=== PATIENT | female | born 1990 | race Caucasian/White ===

== ENCOUNTER → 2016-10-11 | Outpatient (CLI) | payer OTHER ==
--- NOTE | 2016-10-11 10:45 | MM ---
Reason for exam: screening (asymptomatic). Baseline mammogram. History: Patient is nulliparous. Family history of breast cancer in grandmother and breast cancer in aunt. Physical Findings: Nurse Summary: 2cm nodule in the right breast at 10 o'clock (nurse sylvia). MG 3D Diag Mammo W/Cad KAYLEY Bilateral CC and MLO view(s) were taken. The breast tissue is extremely dense which could obscure a lesion on mammography. There is no discrete abnormality. BB upper outer quadrant. These results were verbally communicated with the patient and result sheet given to the patient on 10/11/16. ASSESSMENT: Negative, BI-RAD 1 RECOMMENDATION: Routine screening mammogram of both breasts at age 39. Manage patient on a clinical basis.
--- NOTE | 2016-10-11 10:45 | USB ---
Reason for exam: clinical finding. History: Patient is nulliparous. Family history of breast cancer in grandmother and breast cancer in aunt. US Breast RT Right breast ultrasound includes all four quadrants, the retroareolar region and axilla. Finding demonstrates no cystic or solid lesion seen. These results were verbally communicated with the patient and result sheet given to the patient on 10/11/16. ASSESSMENT: Negative, BI-RAD 1 RECOMMENDATION: Routine screening mammogram of both breasts at age 39. Manage patient on a clinical basis.
== END ==
LOC: RADMAMWWP 08:48
PROVIDERS: ATTEND Obstetrics & Gynecology
DX: N63 Unspecified lump in breast (principal)
CPT/HCPCS: 76641; G0204; G0279

== ENCOUNTER 2018-01-01 14:42 | Outpatient (CLI) | payer OTHER ==
[2018-01-01 15:33] VITALS: BP 116/72; PULSE 82; RESP 16; TEMP 97.6
--- NOTE | 2018-01-19 13:10 | P.MSEPDOC ---
Presenting Problems - Arrival Data Date of Arrival on Unit: 01/01/18 Time of Arrival on Unit: 14:45 Mode of Transport: Ambulatory - Complaint OB-Reason for Admission/Chief Complaint: Decreased Movement Medical History - Information : 1 Para: 0 Term: 0 : 0 Abortions: Spontaneous or Elective: 0 Number of Living Children: 0 - Gestational Age Gestational Age by KELTON (wks/days): 27 Weeks and 0 Days Review of Systems - Review of Systems Constitutional: No problems Breast: No problems ENT: Nasal congestion Cardiovascular: No problems Respiratory: No problems Gastrointestinal: No problems Genitourinary: No problems Musculoskeletal: No problems Neurological: No problems Skin: No problems Vital Signs - Temperature Temperature: 97.6 F Temperature Source: Oral - Pulse Right Sitting Brachial Pulse Rate: 82 Pulse Assessment Method: Automatic Cuff - Respirations Respiratory Rate: 16 - Blood Pressure Right Arm Blood Pressure: 116/72 Blood Pressure Mean: 86 Blood Pressure Source: Automatic Cuff Medical Screen Scoring (Pre) - Cervical Exam Dilation: Exam Deferred Effacement: Exam Deferred Membranes: Intact - Uterine Contractions Frequency: N/A Duration: N/A Intensity: N/A - Maternal Vital Signs Maternal Temperature: N/A Maternal Blood Pressure: N/A Signs of Preeclampsia: N/A Maternal Respirations: N/A - Maternal Trauma Maternal Trauma: N/A - Assessment Baseline FHR: 150 Heart Rate - NICHD Category: Category I (Normal) = 0 Position: N/A Station: N/A - Total Score Total Score (Pre): 0 - Level of Risk Level of Risk: Low (0-5) Physician Notification (Pre) - Physician Notified Physician Notified Date: 01/01/18 Physician Notified Time: 15:20 Physician/Practitioner Notifed:: Valdemar Bradford Order Received: Yes Disposition - Disposition OB Disposition: Discharge to home, Written follow up instructions reviewed Discharge Date: 01/01/18 Discharge Time: 15:25 I agree with the RN Medical Screening Exam: Yes Risk & Benefit of care provided described in d/c instruction: Yes Diagnosis: DECREASED MOVEMENTS, SECOND TRIMESTER, FETUS 1
== END 2018-01-01 15:25 | disposition home or self-care (01) ==
LOC: FBPOP 14:42
PROVIDERS: ATTEND Obstetrics & Gynecology
DX: O36.8121 Decreased fetal movements, second trimester, fetus 1 (principal); Z3A.27 27 weeks gestation of pregnancy
CPT/HCPCS: 99213

== ENCOUNTER 2018-03-30 09:34 | Inpatient (IN) | payer BC, OTHER ==
[2018-03-30] MEDS ORDERED: CITRIC ACID-SODIUM CITRATE 15 ML CUP PO ONE (10:02)
[2018-03-30 10:15] VITALS: BMI 29.2
[2018-03-30] MEDS ORDERED: LACTATED RINGERS 1,000 ML IV SCH ×2 (10:15→12:00)
[2018-03-30 10:23] LABS: Basophils # (A) 0.1 k/uL (0-0.2); Basophils % (A) 0 %; Eosinophils # (A) 0.2 k/uL (0-0.7); Eosinophils % (A) 2 %; HCT 41.3 % (34.0-46.0); HGB 13.4 gm/dL (11.4-16.0); Lymphocytes # (A) 1.5 k/uL (1.0-4.8); Lymphocytes % (A) 12 %; MCH 31.1 pg (25.0-35.0); MCHC 32.6 g/dL (31.0-37.0); MCV 95.4 fL (80.0-100.0); Mean Platelet Volume 7.3; Monocytes # (A) 0.7 k/uL (0-1.0); Monocytes % (A) 5 %; Neutrophils # (A) 10.1 k/uL (1.3-7.7); Neutrophils % (A) 79 %; Platelet Count 171 k/uL (150-450); RBC 4.33 m/uL (3.80-5.40); RDW 13.7 % (11.5-15.5); WBC 12.8 k/uL (3.8-10.6)
[2018-03-30] MEDS ORDERED: CLINDAMYCIN 900 MG in DEXTROSE 5% IN WATER 50 ML IVPB STA ×2 (10:23)
[2018-03-30] MEDS ORDERED: MORPHINE SULFATE (PF) 0.3 MG/0.3 ML SYR ONE (10:56)
[2018-03-30] MEDS ORDERED: NALBUPHINE 10 MG/ML VIAL (10ML MDV) ONE (10:56)
[2018-03-30] MEDS ORDERED: ONDANSETRON 4 MG/2 ML VIAL ONE (10:56)
[2018-03-30] MEDS ORDERED: KETOROLAC 30 MG/ML 1 ML VIAL ONE (10:56)
[2018-03-30] MEDS ORDERED: OXYTOCIN 10 UNIT/ML 1 ML VIAL ONE (10:56)
[2018-03-30] MEDS ORDERED: fentaNYL (PF) 50 MCG/ML 2 ML AMP ONE (10:56)
[2018-03-30] MEDS ORDERED: PHENYLEPHRINE-0.9% NACL SYG 1 MG/10 ML SYRINGE ONE (10:56)
[2018-03-30] MEDS ORDERED: LACTATED RINGERS 1,000 ML BAG IV ONE (10:56)
--- NOTE | 2018-03-30 11:00 | P.HPOB ---
History of Present Illness H&P Date: 03/30/18 Chief Complaint: 39+ weeks, breech presentation The patient is a 27-year-old 1 para 0 admitted at 39-3/7 weeks as established by last menstrual period and confirmed by seven-week ultrasound. She is admitted for primary low-transverse section having been found with the fetus in breech presentation for the last several weeks. We discussed alternatives including version which she ultimately decline in favor of primary section. Her has been otherwise entirely uncomplicated and group B strep status is negative. Obstetrical history: 1 para 0 with current statistics listed in history present illness. EDC of 04/02/2018 was established by last menstrual period and confirmed by seven-week ultrasound. Laboratory workup done traits of blood type of A+ with a negative antibody screen. Rubella status is immune. All other laboratory workup was within normal limits. One hour Glucola was normal and group B strep status is negative. Gynecologic history: Unremarkable with no history of any infections to include STDs. Review of Systems Review of systems is confined to history of present illness. Past Medical History Past Medical History: No Reported History History of Any Multi-Drug Resistant Organisms: None Reported Past Surgical History: No Surgical Hx Reported Past Anesthesia/Blood Transfusion Reactions: No Reported Reaction Past Psychological History: No Psychological Hx Reported Smoking Status: Former smoker Past Alcohol Use History: None Reported Additional Past Alcohol Use History / Comment(s): QUIT SMOKING JUNE 2017 Past Drug Use History: None Reported - Past Family History Mother Family Medical History: No Reported History Medications and Allergies Home Medications Medication Instructions Recorded Confirmed Type Pnv,Calcium 72/Iron/Folic Acid 1 tab PO DAILY 01/01/18 03/30/18 History [ Plus Tablet] Allergies Allergy/AdvReac Type Severity Reaction Status Date / Time Penicillins Allergy Rash/Hives Verified 03/30/18 09:46 Sulfa (Sulfonamide Allergy Rash/Hives Verified 03/30/18 09:46 Antibiotics) adhesive tape AdvReac Rash/Hives Verified 03/30/18 09:46 Exam Vital Signs Temp Pulse Resp BP Pulse Ox 03/30/18 09:43 97.2 F L 101 H 18 135/82 96 Intake and Output 03/29/18 03/30/18 03/30/18 22:59 06:59 14:59 Other: Weight 82.1 kg In general, this is a well-developed, well-nourished white female in no acute distress. Her heart has a regular rhythm and rate without murmur. Her lungs are clear to auscultation bilaterally in all lombardo. Her abdomen is gravid, nondistended, has normal active bowel sounds, is soft, nontender, and without any palpable masses aside from the uterine fundus. Bedside ultrasound confirms breech presentation with the head in the left upper quadrant. Her extremities are without any cyanosis, clubbing, or edema and are nontender to palpation bilaterally. Digital cervical examination is deferred. Results Result Diagrams: 03/30/18 10:00 Abnormal Lab Results - Last 24 Hours (Table) 03/30/18 Range/Units 10:00 WBC 12.8 H (3.8-10.6) k/uL Neutrophils # 10.1 H (1.3-7.7) k/uL Assessment and Plan (1) Term Current Visit: Yes Status: Acute Code(s): Z34.80 - ENCOUNTER FOR SUPRVSN OF NORMAL , UNSP TRIMESTER SNOMED Code(s): 10893216 (2) Breech presentation Current Visit: Yes Status: Acute Code(s): O32.1XX0 - MATERNAL CARE FOR BREECH PRESENTATION, UNSP SNOMED Code(s): 6356008 Plan: The patient is admitted for primary low-transverse section. She was counseled regarding alternatives and opted to proceed in this direction. The risks and, occasions the procedure have been thoroughly discussed. She has understood this and agreed to proceed.
[2018-03-30] MEDS ORDERED: HYDROcodone/APAP 7.5-325MG 1 EACH TAB PO PRN (11:47)
[2018-03-30] MEDS ORDERED: ACETAMINOPHEN TAB 325 MG TAB PO PRN (11:47)
[2018-03-30] MEDS ORDERED: diphenhydrAMINE 50 MG/ML 1 ML VIAL IVP PRN ×2 (11:47)
[2018-03-30] MEDS ORDERED: KETOROLAC 30 MG/ML 1 ML VIAL IVP PRN (11:47)
[2018-03-30] MEDS ORDERED: SIMETHICONE 80 MG CHEWABLE PO PRN (11:47)
[2018-03-30] MEDS ORDERED: ZOLPIDEM 5 MG TAB PO PRN (11:47)
[2018-03-30] MEDS ORDERED: diphenhydrAMINE 25 MG CAP PO PRN (11:47)
[2018-03-30] MEDS ORDERED: METOCLOPRAMIDE 5 MG/ML 2 ML VIAL IVP PRN (11:47)
[2018-03-30] MEDS ORDERED: LANOLIN CREAM 5 GM TUBE TOPICAL PRN (11:47)
[2018-03-30] MEDS ORDERED: NALOXONE 0.4 MG/ML 1 ML VIAL IV PRN (11:47)
[2018-03-30] MEDS ORDERED: diphenhydrAMINE 50 MG CAP PO PRN (11:47)
[2018-03-30] MEDS ORDERED: HYDROcodone/APAP 5-325MG 1 EACH TAB PO PRN (11:47)
[2018-03-30] MEDS ORDERED: ONDANSETRON 4 MG/2 ML VIAL IVP PRN (11:47)
[2018-03-30] MEDS ORDERED: DIPH,PERTUS(ACELL)TETVAC-LF 0.5 ML VIAL IM ONE (11:49)
--- NOTE | 2018-03-30 11:54 | P.OP ---
Date of Procedure: 03/30/18 Preoperative Diagnosis: #1. 39-3/7 weeks intrauterine , breech presentation Postoperative Diagnosis: Same Procedure(s) Performed: Primary low-transverse section Anesthesia: spinal Surgeon: [facility] Assistant #1: Reyna Cristobal Estimated Blood Loss (ml): 500 IV fluids (ml): 1,500 Urine output (ml): 200 Pathology: none sent Condition: stable Disposition: floor Operative Findings: Preoperatively, breech presentation was confirmed with bedside ultrasound performed by co. Intraoperatively, the fetus was noted to be in abran breech presentation was delivered with standard breech maneuvers. She was delivered of a viable 6 lbs. 5 oz. baby girl with Apgars of 9 at 1 minute and 9 at 5 minutes in abran breech presentation as noted above with standard maneuvers. There was a loose nuchal cord 1 reduced following delivery of the . The placenta was delivered manually, intact, and grossly normal with a grossly normal three-vessel cord. The uterus, tubes, and ovaries were entirely normal to inspection. Description of Procedure: The patient was prepped and draped in usual fashion after spinal anesthesia was administered by the anesthesiologist. A Pfannenstiel incision was made in the transverse plane and extended into the abdominal cavity without difficulty. The bladder peritoneum was significant a distal to the site of the incision and was left in place. A 2 cm incision was made in the transverse plane of the lower uterine segment to enter the uterus at which time clear fluid was noted. The incision was extended in both directions using the bandage scissors. The breech was encountered within the incision and abran breech presentation. It was delivered up and through the incision where standard Pinard maneuvers were utilized to deliver the legs as well as the arms with rotation. The head delivered easily. There was noted to be a nuchal cord which was reduced following delivery. The cord was doubly clamped, cut, and the infant passed for resuscitative measures with weight and Apgars as noted above. A segment of cord was doubly clamped, cut, and set aside should cord gases become necessary. The placenta was delivered manually and intact as noted above. The uterus was exteriorized and the interior cavity of uterus swept of any remaining placental or membranous fragments. The margins of the incisions were grasped with Dumont clamps and the incision closed in 2 layers. The first layer was a running locking stitch of 0 chromic catgut followed by a running imbricating stitch of 0 chromic catgut, each from margin to margin. One small point of bleeding was noted at the left angle of the incision and was made hemostatic with a [id number] stitch of 0 chromic catgut. Hemostasis then appeared to be excellent. The gutters were swept of any remaining blood, fluid , or clot. The parietal peritoneum was loosely reapproximated and layer of muscles examined and found to be hemostatic. The fascia was closed with a single running stitch of 0 Vicryl of proceeding from margin to margin. Subcutaneous tissues were irrigated, made hemostatic with the Bovie, and the knot closed as there was no depth. The skin was reapproximated with a running subcuticular stitch of 4-0 Vicryl proceeding from margin to margin followed by placement of half-inch Steri-Strips using Mastisol. Estimated blood loss for the entire case was approximate 500 mL. There were no complications. All sponge, instrument, and needle counts were correct. The patient tolerated the procedure well and proceeded to the recovery room in stable condition. Both mother and are resting comfortably in recovery.
[2018-03-30] MEDS ORDERED: OXYTOCIN 20 UNITS/1000 ML NS 1,000 ML IV SCH (12:00)
[2018-03-30] MEDS: SENNOSIDES-DOCUSATE SODIUM 1 EACH TAB PO SCH (21:10)
[2018-03-31 07:24] LABS: Basophils % (A) 0 %; Eosinophils # (A) 0.1 k/uL (0-0.7); Eosinophils % (A) 1 %; HCT 34.9 % (34.0-46.0); HGB 11.3 gm/dL (11.4-16.0); Lymphocytes # (A) 1.3 k/uL (1.0-4.8); Lymphocytes % (A) 9 %; MCH 31.3 pg (25.0-35.0); MCHC 32.4 g/dL (31.0-37.0); MCV 96.7 fL (80.0-100.0); Mean Platelet Volume 7.9; Monocytes # (A) 0.9 k/uL (0-1.0); Monocytes % (A) 6 %; Neutrophils # (A) 12.3 k/uL (1.3-7.7); Neutrophils % (A) 83 %; Platelet Count 175 k/uL (150-450); RBC 3.61 m/uL (3.80-5.40); RDW 13.9 % (11.5-15.5); WBC 14.8 k/uL (3.8-10.6)
--- NOTE | 2018-03-31 07:40 | P.PN ---
Progress Note - Text Progress Note Date: 03/31/18 Patient evaluated POST op day 1 section denies any headaches, VAS 5/10 progressing as expected Site is clean dry and intact will sign off
[2018-03-31] MEDS: SENNOSIDES-DOCUSATE SODIUM 1 EACH TAB PO SCH ×2 (08:14→21:57)
--- NOTE | 2018-03-31 09:45 | P.PNOBGPC ---
Subjective - Subjective Patient reports: Reports appetite normal, Reports pain well controlled, Reports ambulating normally, Reports other (Unable to urinate since catheter taken out last evening.) : doing well Objective - Vital Signs Latest vital signs: Vital Signs Temp Pulse Resp BP Pulse Ox 03/31/18 08:00 98.5 F 75 16 109/67 03/31/18 04:00 98.2 F 76 18 116/61 98 03/31/18 00:00 98.3 F 80 16 106/71 98 03/30/18 20:00 98.1 F 78 16 111/71 03/30/18 16:00 97.5 F L 83 16 112/51 03/30/18 13:51 83 16 113/55 03/30/18 13:21 97.7 F 79 16 102/57 98 03/30/18 12:51 71 16 105/54 98 03/30/18 12:36 97.5 F L 86 18 113/56 03/30/18 12:21 89 18 105/56 03/30/18 12:06 80 16 100/57 03/30/18 12:00 95.1 F L 73 18 96/53 03/30/18 11:51 95.1 F L 75 18 96/53 Intake and Output 03/30/18 03/31/18 03/31/18 22:59 06:59 14:59 Intake Total 100 Output Total 140 840 4889 Balance -400 -750 -1600 Intake: Oral 100 Output: Urine 266 346 6963 Uretheral (Currie) 450 800 Emesis 50 Other: # Voids 1 - Exam Extremities: Present: normal Abdomen: Present: normal appearance, soft. Absent: distention, tenderness Incision: Present: normal, dry, intact Uterus: Present: normal, firm (The uterine fundus is tonic and nontender well below the umbilicus.) - Labs Labs: Abnormal Lab Results - Last 24 Hours (Table) 03/30/18 03/31/18 Range/Units 10:00 07:04 WBC 12.8 H 14.8 H (3.8-10.6) k/uL RBC 3.61 L (3.80-5.40) m/uL Hgb 11.3 L (11.4-16.0) gm/dL Neutrophils # 10.1 H 12.3 H (1.3-7.7) k/uL Assessment and Plan (1) Term Current Visit: Yes Status: Acute Code(s): Z34.80 - ENCOUNTER FOR SUPRVSN OF NORMAL , UNSP TRIMESTER SNOMED Code(s): 34907763 (2) Breech presentation Current Visit: Yes Status: Acute Code(s): O32.1XX0 - MATERNAL CARE FOR BREECH PRESENTATION, UNSP SNOMED Code(s): 4700282 (3) Status post section Current Visit: Yes Status: Acute Code(s): Z98.891 - HISTORY OF UTERINE SCAR FROM PREVIOUS SURGERY SNOMED Code(s): 816275081 Plan: Continue routine postoperative care. I would anticipate discharge home tomorrow pending no complications. I fully anticipate normal voiding and the next several hours. I have encouraged her to and placed in the halls routinely.
[2018-03-31] MEDS: IBUPROFEN 600 MG TAB PO PRN (17:33)
[2018-04-01] MEDS: IBUPROFEN 600 MG TAB PO PRN (06:11)
--- NOTE | 2018-04-01 08:05 | P.DS ---
Providers Date of admission: 03/30/18 09:34 Expected date of discharge: 04/01/18 Attending physician: Dom Aldrich Primary care physician: Stated None Hospital Course: This is a 27-year-old white female 1 para 0 EDC 04/02/2018 at 39-4/7 weeks' gestation. Patient presented for primary low transverse section for known breech presentation. was essentially unremarkable, blood type A+, group B strep cultures negative, rubella status immune. Please see dictated history and physical for details. Patient underwent a primary low transverse section giving to a liveborn female infant. She had scores of 9 and 9 at one and 5 minutes respectively. She weighed 6 lbs. 5 oz. or 2870 g. She did well intraoperatively with an estimated blood loss of 500 mL's. Please see dictated operative note for details. This morning the patient is doing well. She is voiding, ambulating, passing flatus without difficulty. She has had a bowel movement. She is tolerating regular food. is doing well. Incision is clean and dry, intact with Steri-Strips applied. Breasts are not engorged. Breast-feeding is going well. Extremities are negative for edema and chest is clear in all lombardo. Patient is being discharged home today in very good condition. She will follow- up in the office for an incision check in 2 weeks. She will use over-the- counter Advil or Aleve, or ibuprofen as needed for pain. I've asked her to call with any fevers shakes or chills, foul smelling or copious lochia, with the passage of large blood clots, with any pain not alleviated by over-the- counter products or indeed with any concerns. She is reminded no heavy lifting , nothing in the vagina, no intercourse tampons or douching. infant will follow-up with it infrastructure consultant as recommended. Patient Condition at Discharge: Good Plan - Discharge Summary Discharge Rx Participant: No New Discharge Prescriptions: No Action Pnv,Calcium 72/Iron/Folic Acid [ Plus Tablet] 1 tab PO DAILY Discharge Medication List Pnv,Calcium 72/Iron/Folic Acid [ Plus Tablet] 1 tab PO DAILY 01/01/18 [ History] Follow up Appointment(s)/Referral(s): Dom Aldrich MD [STAFF PHYSICIAN] - 2 Weeks Discharge Disposition: HOME SELF-CARE
[2018-04-01 09:05] VITALS: BP 124/74; PULSE 89; RESP 18; TEMP 98
[2018-04-01] MEDS: SENNOSIDES-DOCUSATE SODIUM 1 EACH TAB PO SCH (09:06)
== END 2018-04-01 14:00 | disposition home or self-care (01) | DRG 788 ==
LOC: 4FBP 09:34
PROVIDERS: ADMIT Obstetrics & Gynecology; ATTEND Obstetrics & Gynecology
PROC: 10D00Z1 Extraction of Products of Conception, Low, Open Approach (ICD-10-PCS; principal; 2018-03-30 10:56)
DX: O32.1XX0 Maternal care for breech presentation, not applicable or unspecified (principal); O69.81X0 Labor and delivery complicated by cord around neck, without compression, not applicable or unspecified; Z37.0 Single live birth; Z3A.39 39 weeks gestation of pregnancy; Z87.891 Personal history of nicotine dependence; Z88.0 Allergy status to penicillin; Z88.2 Allergy status to sulfonamides
CPT/HCPCS: 85025; 86850; 86900; 86901; 90715

== ENCOUNTER → 2018-12-08 | Outpatient (CLI) | payer BC ==
[2018-12-08 17:06] LABS: Appearance,BF Cloudy; Color,BF Brown
[2018-12-08 17:37] LABS: Nucleated Cells, Body Fluid 9700 /uL; RBC, Body Fluid 12100 /uL
[2018-12-08 17:45] LABS: Mononuclear WBC,Body Fluid 20 %; Polynuclear WBC,Body Fluid 80 %; Total Cells Counted,Body Fluid 100
== END | disposition home or self-care (01) ==
LOC: LABWHC1 12:48
PROVIDERS: ATTEND Orthopaedic Surgery
DX: M25.562 Pain in left knee (principal); M25.462 Effusion, left knee
CPT/HCPCS: 87070; 87075; 87205; 89050; 89060

== ENCOUNTER 2020-08-25 08:14 | Inpatient (IN) | payer BC ==
[2020-08-23 15:21] VITALS: BMI 30.7
[2020-08-25] MEDS ORDERED: CITRIC ACID-SODIUM CITRATE 15 ML CUP PO ONE (08:38)
[2020-08-25] MEDS ORDERED: LACTATED RINGERS 1,000 ML IV ONE (08:38)
[2020-08-25] MEDS ORDERED: CLINDAMYCIN 900 MG in DEXTROSE 5% IN WATER 50 ML IVPB ONE ×2 (08:38)
[2020-08-25] MEDS ORDERED: SODIUM CHLORIDE 0.9% IVPB ONE (08:38)
[2020-08-25] MEDS ORDERED: GENTAMICIN IVPB ONE (08:38)
[2020-08-25] MEDS ORDERED: LACTATED RINGERS 1,000 ML IV SCH (08:45)
[2020-08-25 09:13] LABS: Basophils % (A) 0 %; Eosinophils # (A) 0.2 k/uL (0-0.7); Eosinophils % (A) 2 %; HCT 35.7 % (34.0-46.0); Lymphocytes # (A) 1.3 k/uL (1.0-4.8); Lymphocytes % (A) 12 %; MCH 30.1 pg (25.0-35.0); MCHC 33.5 g/dL (31.0-37.0); MCV 89.8 fL (80.0-100.0); Mean Platelet Volume 8.5; Monocytes # (A) 0.6 k/uL (0-1.0); Monocytes % (A) 6 %; Neutrophils % (A) 79 %; Platelet Count 149 k/uL (150-450); RBC 3.97 m/uL (3.80-5.40); RDW 13.4 % (11.5-15.5); WBC 10.1 k/uL (3.8-10.6)
[2020-08-25] MEDS ORDERED: OXYTOCIN 10 UNIT/ML 1 ML VIAL ONE (10:07)
[2020-08-25] MEDS ORDERED: NALBUPHINE 10 MG/ML (1 ML AMP) ONE (10:07)
[2020-08-25] MEDS ORDERED: MORPHINE SULFATE (PF) 0.3 MG/0.3 ML SYR ONE (10:07)
[2020-08-25] MEDS ORDERED: MIDAZOLAM 2 MG/2 ML VIAL ONE (10:07)
[2020-08-25] MEDS ORDERED: HYDROmorphone (PF) 1 MG/ML ONE (10:07)
[2020-08-25] MEDS ORDERED: ONDANSETRON 4 MG/2 ML VIAL ONE (10:07)
[2020-08-25] MEDS ORDERED: KETOROLAC 15 MG/ML 1 ML VIAL ONE (10:07)
--- NOTE | 2020-08-25 10:09 | P.HPOB ---
History of Present Illness H&P Date: 08/25/20 Chief Complaint: 39-0/7 weeks, previous section, requesting repeat with tubal ligat The patient is a 30-year-old 2 para 1001 admitted at 39-0/7 weeks as established by last menstrual period and confirmed by seven-week ultrasound. She is admitted for repeat low transverse section with intraoperative bilateral tubal occlusion using Filshie clips. She understands the applications of this and has signed consent to the procedure in the office. Her has been uncomplicated and group B strep status is negative. She is known to have a circumvallate placenta and had weekly testing starting at 32 weeks which was reassuring throughout the . Obstetrical history: 2 para 1001 with 1 previous section for b carlee. Current statistics are listed in history present illness. EDC of 08/31/2020 was established by last menstrual period and confirmed by seven- week ultrasound. Laboratory workup demonstrates a blood type of A+ with a negative antibody screen. Rubella status is immune. Remainder of the laboratory workup was within normal limits. One hour Glucola was normal and group B strep status is negative. Gynecologic history: Unremarkable with no history of any infections to include STDs. Review of Systems Review of systems is confined to history of present illness. Past Medical History Past Medical History: No Reported History History of Any Multi-Drug Resistant Organisms: None Reported Past Surgical History: Section Past Anesthesia/Blood Transfusion Reactions: No Reported Reaction Past Psychological History: No Psychological Hx Reported Smoking Status: Former smoker Past Alcohol Use History: None Reported Additional Past Alcohol Use History / Comment(s): QUIT SMOKING JUNE 2017 Past Drug Use History: None Reported - Past Family History Mother Family Medical History: No Reported History Medications and Allergies Home Medications Medication Instructions Recorded Confirmed Type Pnv,Calcium 72/Iron/Folic Acid 1 tab PO DAILY 01/01/18 08/23/20 History [ Plus Tablet] Allergies Allergy/AdvReac Type Severity Reaction Status Date / Time Penicillins Allergy Rash/Hives Verified 08/25/20 08:38 Sulfa (Sulfonamide Allergy Rash/Hives Verified 08/25/20 08:38 Antibiotics) adhesive tape AdvReac Rash/Hives Verified 08/25/20 08:38 Exam Vital Signs Temp Pulse Resp BP Pulse Ox 08/25/20 08:50 97.8 F 90 16 105/68 99 Intake and Output 08/24/20 08/25/20 08/25/20 22:59 06:59 14:59 Other: Weight 86.183 kg In general, this is a well-developed, well-nourished white female in no acute distress. Her heart has a regular rhythm and rate without murmur. Her lungs are clear to auscultation bilaterally in all lombardo. Her abdomen is gravid, no ndistended, has normal active bowel sounds, is soft, nontender, and without any palpable masses aside from the uterine fundus. Her extremities are without any cyanosis, clubbing, or significant edema and are nontender to palpation bilaterally. Digital cervical examination is deferred. Results Result Diagrams: 08/25/20 08:48 Abnormal Lab Results - Last 24 Hours (Table) 08/25/20 Range/Units 08:48 Plt Count 149 L (150-450) k/uL Neutrophils # 8.0 H (1.3-7.7) k/uL Assessment and Plan (1) Previous section Current Visit: Yes Status: Acute Code(s): Z98.891 - HISTORY OF UTERINE SCAR FROM PREVIOUS SURGERY SNOMED Code(s): 506447925 (2) Family planning Current Visit: Yes Status: Acute Code(s): Z30.09 - ENCOUNTER FOR OTH GENERAL CNSL AND ADVICE ON CONTRACEPTION SNOMED Code(s): 320885945 (3) Term Current Visit: Yes Status: Acute Code(s): Z34.80 - ENCOUNTER FOR SUPRVSN OF NORMAL , UNSP TRIMESTER SNOMED Code(s): 20265095 Plan: The patient is admitted for repeat low transverse section with bilateral tubal occlusion intraoperatively. The risks and complications the procedures have been thoroughly discussed including the permanent nature of tubal ligation as well as the slightly increased risk for ectopic . She has understood all this and agreed to proceed.
[2020-08-25] MEDS ORDERED: METOCLOPRAMIDE 5 MG/ML 2 ML VIAL IVP PRN (11:09)
[2020-08-25] MEDS ORDERED: NALOXONE 0.4 MG/ML 1 ML VIAL IV PRN ×2 (11:09→12:20)
[2020-08-25] MEDS ORDERED: diphenhydrAMINE 25 MG CAP PO PRN (11:09)
[2020-08-25] MEDS ORDERED: ONDANSETRON 4 MG/2 ML VIAL IVP PRN (11:09)
[2020-08-25] MEDS ORDERED: ZOLPIDEM 5 MG TAB PO PRN (11:09)
[2020-08-25] MEDS ORDERED: diphenhydrAMINE 50 MG CAP PO PRN (11:09)
[2020-08-25] MEDS ORDERED: SIMETHICONE 80 MG CHEWABLE PO PRN (11:09)
[2020-08-25] MEDS ORDERED: diphenhydrAMINE 50 MG/ML 1 ML VIAL IVP PRN ×2 (11:09)
[2020-08-25] MEDS ORDERED: LANOLIN CREAM 5 GM TUBE TOPICAL PRN (11:09)
[2020-08-25] MEDS ORDERED: HYDROmorphone 2 MG TAB PO PRN ×2 (11:09)
--- NOTE | 2020-08-25 11:09 | P.OP ---
Date of Procedure: 08/25/20 Preoperative Diagnosis: #1. Claus 9-0/7 weeks #2. Previous section 1, requesting repeat #3. Undesired fertility Postoperative Diagnosis: Same Procedure(s) Performed: #1. Repeat low transverse section #2. Intraoperative bilateral tubal occlusion with Filshie clips Anesthesia: spinal Surgeon: Dom Aldrich Yarn Examiner #1: Reyna Cristobal Estimated Blood Loss (ml): 500 IV fluids (ml): 600 Urine output (ml): 200 Pathology: none sent Condition: stable Disposition: floor Operative Findings: Intraoperatively there was only mild scarring at the level of the fascia and rectus muscles. The bladder was noted to be relatively high. The patient was delivered of a viable 8 lbs. 5 oz. baby boy with Apgars of 9 at 1 minute and 9 at 5 minutes delivered in the left occiput transverse position. There was a loose nuchal cord 1 which was reduced prior to delivery of the infant's torso. The placenta was delivered manually, intact, and grossly normal with a grossly normal three-vessel cord. The uterus, tubes, and ovaries were entirely normal to inspection. A Filshie clip was placed firmly across the isthmic portion of both fallopian tubes for tubal occlusion. Consent was reobtained on several occasions both preoperatively and intraoperatively prior to proceeding with placement of the clips. Description of Procedure: The patient was prepped and draped in usual fashion after spinal anesthesia was administered by the anesthesiologist. A Pfannenstiel incision was made and extended into the abdominal cavity with no difficulty. The bladder peritoneum was noted to be elevated somewhat was elevated, incised, and reflected distally. A 2 cm incision was made in the transverse plane of the lower uterine segment to enter the uterus at which time clear fluid was noted. The incision was extended in both directions using the bandage scissors. head was delivered up and through the incision where the nose and mouth were thoroughly suctioned. A nuchal cord 1 was noted and was reduced. The remainder of the infant was delivered onto the field where the cord was doubly clamped, cut, and the infant passed for resuscitative measures with weight and Apgars as noted above. A segment of cord was doubly clamped, cut, and set aside should cord gases become necessary. The placenta was delivered manually and intact as noted above. The uterus was exteriorized and the interior cavity of uterus swept of any remaining placental or membranous fragments. The margins of the uterine incision were grasped with Dumont clamps and the incision closed in 2 layers. The first layer was a running locking stitch of 0 chromic catgut from margin to margin followed by a running imbricating stitch of 0 chromic catgut from margin to margin. There were some fairly large vessels at the left angle of the incision which were controlled with the primary 2 layers of closure. The incision appeared to be quite hemostatic. The posterior cul-de-sac was ramires ctioned with a guard and the uterine and ovarian findings were normal as noted above. After again requesting and receiving verbal consent for tubal occlusion, a Filshie clip was placed firmly across the isthmic portion of each fallopian tube oh. The uterus was then replaced within the abdominal cavity and the gutters swept of any remaining blood, fluid, or clot. Reexamination of the surgical field demonstrated excellent hemostasis. The parietal peritoneum was loosely reapproximated and layer of muscles examined and found to be hemostatic. The fascia was closed with a single running stitch of 0 Vicryl proceeding from lateral margin to lateral margin. The subcutaneous tissues were irrigated, made hemostatic with the Bovie, and reapproximated with a running stitch of 30 plain catgut. The skin was approximated with a running subcuticular stitch of 4-0 Vicryl followed by half-inch Steri-Strips placed with Mastisol. Estimated blood loss for the case was approximate 500 mL. There were no compilations. All sponge, instrument, needle counts were correct. The patient tolerated the procedure well and proceeded to the recovery room in stable condition. Both mother and infant are resting comfortably in recovery.
[2020-08-25] MEDS ORDERED: OXYTOCIN 30 UNITS/500 ML NS 30 UNIT in SALINE 1 500ML.BAG IV SCH (11:15)
[2020-08-25] MEDS: LACTATED RINGERS 1,000 ML IV SCH ×2 (11:30→21:32)
[2020-08-25] MEDS ORDERED: MORPHINE SULFATE 2 MG/ML SYRINGE IVP PRN (12:20)
[2020-08-25] MEDS: ACETAMINOPHEN TAB 500 MG TAB PO SCH ×2 (15:11→20:11)
[2020-08-25] MEDS: KETOROLAC 15 MG/ML 1 ML VIAL IVP PRN (17:03)
[2020-08-25] MEDS: IBUPROFEN 600 MG TAB PO SCH (19:28)
[2020-08-25] MEDS: SENNOSIDES-DOCUSATE SODIUM 1 EACH TAB PO SCH (21:32)
[2020-08-26] MEDS: KETOROLAC 15 MG/ML 1 ML VIAL IVP PRN (00:17)
[2020-08-26] MEDS: IBUPROFEN 600 MG TAB PO SCH ×4 (00:27→19:33)
[2020-08-26] MEDS: ACETAMINOPHEN TAB 500 MG TAB PO SCH ×4 (03:43→22:55)
[2020-08-26] MEDS: LACTATED RINGERS 1,000 ML IV SCH ×2 (04:13→20:33)
[2020-08-26 06:30] LABS: Basophils % (A) 0 %; Eosinophils # (A) 0.1 k/uL (0-0.7); Eosinophils % (A) 1 %; HCT 28.7 % (34.0-46.0); Lymphocytes # (A) 0.8 k/uL (1.0-4.8); Lymphocytes % (A) 8 %; MCHC 34.4 g/dL (31.0-37.0); MCV 90.3 fL (80.0-100.0); Mean Platelet Volume 9.1; Monocytes # (A) 0.7 k/uL (0-1.0); Monocytes % (A) 7 %; Neutrophils # (A) 8.6 k/uL (1.3-7.7); Neutrophils % (A) 84 %; Platelet Count 135 k/uL (150-450); RBC 3.17 m/uL (3.80-5.40); RDW 13.4 % (11.5-15.5); WBC 10.3 k/uL (3.8-10.6)
[2020-08-26 06:32] LABS: HGB 9.9 gm/dL (11.4-16.0)
[2020-08-26] MEDS: SENNOSIDES-DOCUSATE SODIUM 1 EACH TAB PO SCH ×2 (08:24→20:33)
--- NOTE | 2020-08-26 12:20 | P.PNOBGPC ---
Subjective - Subjective Patient reports: Reports appetite normal, Reports voiding normally, Reports pain well controlled, Reports ambulating normally : doing well Objective - Vital Signs Latest vital signs: Vital Signs Temp Pulse Resp BP Pulse Ox 08/26/20 08:20 97.9 F 87 14 110/65 08/26/20 04:00 98.1 F 68 16 100/63 99 08/25/20 23:54 98.3 F 66 16 106/51 96 08/25/20 20:15 98.4 F 70 16 101/55 98 08/25/20 17:00 16 08/25/20 16:00 97.4 F L 76 16 104/58 98 08/25/20 15:20 16 08/25/20 13:20 16 99 08/25/20 13:07 70 16 100/53 99 08/25/20 12:37 72 16 99/51 08/25/20 12:20 18 99 Intake and Output 08/25/20 08/26/20 08/26/20 22:59 06:59 14:59 Output Total 900 400 600 Balance -900 -400 -600 Output: Urine 900 400 600 Uretheral (Currie) 500 Other: # Voids 1 - Exam Extremities: Present: normal Abdomen: Present: normal appearance, soft. Absent: distention, tenderness Incision: Present: normal, dry, intact Uterus: Present: normal, firm (The uterine fundus is tonic and minimally tender at the umbilicus.) - Labs Labs: Abnormal Lab Results - Last 24 Hours (Table) 08/26/20 Range/Units 06:12 RBC 3.17 L (3.80-5.40) m/uL Hgb 9.9 L D (11.4-16.0) gm/dL Hct 28.7 L (34.0-46.0) % Plt Count 135 L (150-450) k/uL Neutrophils # 8.6 H (1.3-7.7) k/uL Lymphocytes # 0.8 L (1.0-4.8) k/uL Assessment and Plan (1) Previous section Current Visit: Yes Status: Acute Code(s): Z98.891 - HISTORY OF UTERINE SCAR FROM PREVIOUS SURGERY SNOMED Code(s): 406845675 (2) Family planning Current Visit: Yes Status: Acute Code(s): Z30.09 - ENCOUNTER FOR OTH GENERAL CNSL AND ADVICE ON CONTRACEPTION SNOMED Code(s): 147288799 (3) Term Current Visit: Yes Status: Acute Code(s): Z34.80 - ENCOUNTER FOR SUPRVSN OF NORMAL , UNSP TRIMESTER SNOMED Code(s): 67390560 (4) Status post section Current Visit: Yes Status: Acute Code(s): Z98.891 - HISTORY OF UTERINE SCAR FROM PREVIOUS SURGERY SNOMED Code(s): 097912013 Plan: Continue routine and postoperative care. I would anticipate discharge home tomorrow pending no complications. I have strongly encouraged the patient to ambulate in the hallways routinely.
--- NOTE | 2020-08-26 17:15 | P.PN ---
Progress Note - Text Progress Note Date: 08/26/20 Postoperative day 1 status post section under spinal anesthesia, and intrathecal morphine given for postoperative analgesia, patient doing well, there is no anesthesia related complications Patient had no headache, vital signs stable Assessment and plan = postop day 1 status post , doing well there is no anesthesia related complication
[2020-08-27] MEDS: IBUPROFEN 600 MG TAB PO SCH ×2 (03:32→09:03)
[2020-08-27] MEDS: ACETAMINOPHEN TAB 500 MG TAB PO SCH (03:54)
[2020-08-27 09:02] VITALS: BP 109/70; PULSE 86; RESP 14; TEMP 98
[2020-08-27] MEDS: SENNOSIDES-DOCUSATE SODIUM 1 EACH TAB PO SCH (09:03)
--- NOTE | 2020-08-27 10:14 | P.DS ---
Providers Date of admission: 08/25/20 08:14 Expected date of discharge: 08/27/20 Attending physician: Dom Aldrich Primary care physician: Stated None - Discharge Diagnosis(es) (1) Previous section Current Visit: Yes Status: Acute (2) Family planning Current Visit: Yes Status: Acute (3) Term Current Visit: Yes Status: Acute (4) Status post section Current Visit: Yes Status: Acute Hospital Course: The patient is a 30-year-old 2 para 1001 admitted at 39-0/7 weeks by good dating parameters. She is admitted for repeat low transverse section with intraoperative bilateral tubal occlusion using Filshie clips. Her has been uncomplicated and group B strep status is negative. She was found to have a circumvallate placenta and had reassuring testing during the entire third trimester. On labor and delivery, she was taken the operating room where she underwent repeat low transverse section in an incompetent fashion and was delivered of a viable 8 lbs. 5 oz. baby boy with Apgars of 9 at 1 minute and 9 at 5 minutes. Her postoperative and course has been unremarkable with vital signs remained stable and her temperature was afebrile throughout. She was deemed stable for discharge on postoperative and day #2 and was discharged home to follow-up in the office in 2 weeks for incision check and 6 weeks routinely. Discharge instructions included calling for any significantly increased bleeding or foul- smelling lochia, significantly increased fever abdominal pain, perineal complaints, breast complaints, incisional complaints, or anything else that concerned her. She is additionally instructed to have nothing in the vagina for at least 6 weeks time to include intercourse and to abstain from any heavy lifting over the same. Of time. She was last instructed to do no driving until off of all pain medications or 2 weeks' time, whichever came first. She understood all of her instructions and agrees to follow up as noted above. Discharge medications included continued vitamins as she has opted to breast-feed. She was to use [id number] analgesic pain medications but was provided with 2 prescriptions, the first for Motrin 600 mg 1 by mouth every 6 hours when necessary pain, #50 dispensed with no refills. The second p rescription for was for Tylenol 3, 1-2 by mouth every 6 hours when necessary pain, #20 dispensed with no refills. Maternal blood type is A+ and rubella status is immune. Discharge hemoglobin and hematocrit were 9.9 and 28.7 respectively. Procedures: #1. Repeat low transverse section #2. Intraoperative bilateral tubal occlusion with Filshie clips Patient Condition at Discharge: Stable Plan - Discharge Summary Discharge Rx Participant: No New Discharge Prescriptions: No Action Pnv,Calcium 72/Iron/Folic Acid [ Plus Tablet] 1 tab PO DAILY Discharge Medication List Pnv,Calcium 72/Iron/Folic Acid [ Plus Tablet] 1 tab PO DAILY 01/01/18 [History] Follow up Appointment(s)/Referral(s): Dom Aldrich MD [STAFF PHYSICIAN] - 2 Weeks Discharge Disposition: HOME SELF-CARE
== END 2020-08-27 11:00 | disposition home or self-care (01) | DRG 785 ==
LOC: 4FBP 08:14
PROVIDERS: ADMIT Obstetrics & Gynecology; ATTEND Obstetrics & Gynecology
PROC: 10D00Z1 Extraction of Products of Conception, Low, Open Approach (ICD-10-PCS; principal; 2020-08-25 10:00)
PROC: 0UL70CZ Occlusion of Bilateral Fallopian Tubes with Extraluminal Device, Open Approach (ICD-10-PCS; principal; 2020-08-25 10:00)
DX: O34.211 Maternal care for low transverse scar from previous cesarean delivery (principal); N85.8 Other specified noninflammatory disorders of uterus; O69.81X0 Labor and delivery complicated by cord around neck, without compression, not applicable or unspecified; Z30.2 Encounter for sterilization; Z37.0 Single live birth; Z3A.39 39 weeks gestation of pregnancy; Z79.899 Other long term (current) drug therapy; Z87.891 Personal history of nicotine dependence; Z88.0 Allergy status to penicillin; Z88.2 Allergy status to sulfonamides; Z91.048 Other nonmedicinal substance allergy status
CPT/HCPCS: 85025; 86850; 86900; 86901

== ENCOUNTER 2021-01-22 15:28 | Emergency (ER) | payer OTHER, BC ==
[2021-01-22 16:11] VITALS: BP 105/78; PULSE 78; RESP 16; TEMP 98.2
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
== END 2021-01-22 17:30 | disposition home or self-care (01) ==
LOC: EC 15:28
DX: S63.502A Unspecified sprain of left wrist, initial encounter (principal); Z88.0 Allergy status to penicillin; Z88.2 Allergy status to sulfonamides; Z87.891 Personal history of nicotine dependence; V43.52XA Car driver injured in collision with other type car in traffic accident, initial encounter; Y92.410 Unspecified street and highway as the place of occurrence of the external cause
CPT/HCPCS: 99283

== ENCOUNTER → 2022-04-02 | Outpatient (CLI) | payer BC | END | disposition home or self-care (01) | LOC: LABWHC1 14:28 | PROVIDERS: ATTEND Internal Medicine Rheumatology | DX: L40.52 Psoriatic arthritis mutilans (principal) | CPT/HCPCS: 36415; 86480 ==